=== PATIENT | female | born 1945 | race Caucasian/White ===

== ENCOUNTER → 2016-11-29 | Outpatient (CLI) | payer MEDICARE, BC ==
[2015-07-30 09:40] VITALS: BP 134/61
[~2016-11-29] MED LIST: ASPI-482 PO; ATORVASTATIN CA80 MG PO; BYSTOLIC5 MG PO; CLOP75TA PO; CRESTOR40 MG PO; LOSA50TA6 PO; MONT10TA9 PO; PROAIR HFA8.5 GM IH; RANI150C PO
--- NOTE | 2016-11-29 11:09 | KCIC ---
PROCEDURE Bilateral digital screening mammogram. HISTORY 71-year-old female presents for screening mammography. TECHNIQUE Full field digital craniocaudal and mediolateral oblique views of both breasts are obtained. Computer-aided detection is applied. COMPARISON 07/14/2015 and 07/01/2014 FINDINGS Breast parenchymal composition: Level B - Scattered fibroglandular densities. There is no new suspicious mass, calcification or architectural distortion within either breast. There is focal asymmetry within the slightly superior left breast on the mediolateral oblique view, without a correlate on the craniocaudal view and stable compared to the study dated 07/01/2014. There are few benign calcifications. IMPRESSION BI-RADS Category 2: Benign findings. Annual mammography is recommended. Mammography is not 100% sensitive in detecting breast cancer. Therefore, a self breast exam and a clinical breast exam are very important. A negative mammogram does not negate a clinically suspicious finding and should not result in a delay in biopsying a clinically suspicious abnormality. This patient's information has been entered into a reminder system for the patient to be notified with the results of this examination and a target date for her next mammograms. Electronically signed by: Marianela Clarke (Nov 29, 2016 11:07:34)
== END | disposition home or self-care (01) ==
LOC: KCIC MAMMO 10:14
PROVIDERS: ATTEND Family Medicine
DX: Z12.31 Encounter for screening mammogram for malignant neoplasm of breast (principal)
CPT/HCPCS: G0202; 77067

== ENCOUNTER → 2018-10-30 | Outpatient (CLI) | payer MEDICARE ==
[2015-07-30 09:40] VITALS: BP 134/61
[~2018-10-30] MED LIST changes: +ALBU2.5V8 IH; +LOSA-73 PO; -LOSA50TA6 PO; -PROAIR HFA8.5 GM IH
--- NOTE | 2018-10-30 15:47 | KCIC ---
Bilateral digital screening mammograms with 3-D tomosynthesis: Reason for examination: Routine screening. Comparison is made to previous studies dated 11/29/2016 and 07/14/2015. Bilateral mammograms in CC and oblique projections were obtained with 2-D imaging and 3-D tomosynthesis imaging on a Siemens Inspiration unit and reviewed on the workstation. Interpretation was made with the benefit of CAD. The skin and nipples show no abnormalities. No abnormal axillary lymph nodes are seen. The breast parenchyma shows scattered fatty and fibroglandular density. (Breast density: Category B.) There are no dominant masses, suspicious calcifications or architectural distortion. Impression: No evidence of malignancy. Recommend routine screening. BI-RAD Category 1: Negative. "Our facility is accredited by the [employer] Mammography [employer]." This patient's information has been entered into a reminder system for the patient to be notified with the results of her examination and a target date for the next mammogram. Electronically signed by: Allyn Pace MD (10/30/2018 3:43 PM) [id number]
== END | disposition home or self-care (01) ==
LOC: KCIC MAMMO 10:49
PROVIDERS: ATTEND Family Medicine
DX: Z12.31 Encounter for screening mammogram for malignant neoplasm of breast (principal)
CPT/HCPCS: 77063; 77067

== ENCOUNTER → 2019-12-14 | Outpatient (CLI) | payer MEDICARE ==
[2015-07-30 09:40] VITALS: BP 134/61
[~2019-12-14] MED LIST changes: +MONT10TA49 PO; -MONT10TA9 PO
--- NOTE | 2019-12-14 12:57 | KCIC ---
Bilateral digital screening mammograms with 3-D tomosynthesis: Reason for examination: Routine screening. Comparison is made to previous studies dated back to 07/14/2015. Bilateral mammograms in CC and oblique projections were obtained with 2-D imaging and 3-D tomosynthesis imaging on a [employer] Inspiration unit and reviewed on the workstation. Interpretation was made with the benefit of CAD. The skin and nipples show no abnormalities. No abnormal axillary lymph nodes are seen. The breast parenchyma is predominantly fatty. (Breast density: Category A.) There are no dominant masses, suspicious calcifications or architectural distortion. Impression: No evidence of malignancy. Recommend routine screening. BI-RAD Category 1: Negative. "Our facility is accredited by the [employer] Mammography [employer]." This patient's information has been entered into a reminder system for the patient to be notified with the results of her examination and a target date for the next mammogram. Electronically signed by: Allyn Pace MD (12/14/2019 12:54 PM) [email or web address]
--- NOTE | 2019-12-14 17:25 | KCIC ---
Bone mineral density exam History: Osteoporosis screening, postmenopausal Comparison: 07/01/2014 Findings: Bone mineral density examination utilizing DEXA was performed. Left hip bone mineral density of 0.807 g/cm2 corresponds with a T score -1.1, Z score 0.6. There has been -4.9% decrease. The bone mineral density of the lumbar spine was 0.991 g/cm2 which corresponds with a T-score of -0.5, Z score 1.8. There has been 0.4% increase. By World [employer] on Osteoporosis criteria, a T score of 0 to-1 SD is considered to be within normal limits. A T score of -1 to -2.5 SD is considered osteopenia. A T score less than -2.5 SD is considered osteoporosis Impression: 1. There is normal bone density of the lumbar spine although could be artificially elevated due to the presence of degenerative change. There is osteopenia of the left hip. Electronically signed by: Harry Caldera MD (12/14/2019 5:22 PM) [id number]
== END | disposition home or self-care (01) ==
LOC: KCIC DEXA 08:50
PROVIDERS: ATTEND Nurse Practitioner Family
DX: Z12.31 Encounter for screening mammogram for malignant neoplasm of breast (principal); Z13.820 Encounter for screening for osteoporosis; Z78.0 Asymptomatic menopausal state
CPT/HCPCS: 77063; 77067; 77080

== ENCOUNTER → 2020-06-11 | Outpatient (CLI) | payer MEDICARE ==
[2015-07-30 09:40] VITALS: BP 134/61
--- NOTE | 2020-06-11 17:14 | RAD ---
Clinical Indications: Carotid stenosis. Exam : Carotid Duplex with Grayscale Ultrasound and Spectral and Color Doppler Analysis: PQRS Compliance Statement - Stenosis calculations for CT, MR and conventional angiography are based upon measurement of the distal ICA diameter in accordance with the NASCET methodology. Stenosis calculations for carotid ultrasound studies are derived from validated velocity criteria which are known to correlate with the NASCET methodology. Comparison study: Carotid duplex ultrasound of 07/14/2015. Findings: The common, internal and external carotid arteries were examined by grayscale, color and spectral Doppler ultrasound. Apart from the chronic, known occlusion of the right internal carotid artery, there is increased peak systolic velocity in the right ECA into 190 cm/s (compared with 97 cm/s previously), representing a moderate stenosis. Mild plaque at the left carotid bulb calcification in the proximal left ICA is noted. No other evidence of significant stenosis in the visualized vessels. Flow in both vertebral arteries was antegrade and normal. The following are the velocities and ratios in the carotid arteries on both sides: RIGHT ICA PV: 0cm/sec RIGHT CCA PV: 98cm/sec RIGHT ICA ED: 0cm/sec RIGHT IC/CCPV: 0 RIGHT VERTEBRAL: antegrade flow RIGHT % STENOSIS: 50% LEFT ICA PV: 97cm/sec LEFT CCA PV: 148cm/sec LEFT ICA ED: 22cm/sec LEFT IC/CCPV: 0.81 LEFT VERTEBRAL: antegrade flow LEFT % STENOSIS: 0 percent <50% ICA Stenosis: PSV < 125cm/s (EDV < 40cm/s; SVR < 2.0) 50-69% ICA Stenosis: PSV < 125-229cm/s (EDV 40-99cm/s; SVR 2.0-3.9) >70% ICA Stenosis: PSV > 230cm/s (EDV >100cm/s; SVR >4.0) Impression: 1. 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 Widely patent left ICA, and antegrade flow in the bilateral vertebral arteries. 3. Interval increase in velocity in the right external carotid artery, compatible with a 50-69% percent stenosis . Electronically signed by: Hira Ohara MD (06/11/2020 5:11 PM) [id number]
== END | disposition home or self-care (01) ==
LOC: US 16:06
PROVIDERS: ATTEND Family Medicine
DX: I65.23 Occlusion and stenosis of bilateral carotid arteries (principal)
CPT/HCPCS: 93880

== ENCOUNTER → 2020-12-15 | Outpatient (CLI) | payer MEDICARE ==
[2015-07-30 09:40] VITALS: BP 134/61
--- NOTE | 2020-12-15 11:06 | KCIC ---
Bilateral digital screening mammograms with 3-D tomosynthesis: Reason for examination: Routine screening. Comparison is made to previous studies dated back to 07/14/2015. Bilateral mammograms in CC and oblique projections were obtained with 2-D imaging and 3-D tomosynthes is imaging on a Siemens Inspiration unit and reviewed on the workstation. Interpretation was made wit h the benefit of CAD. The skin and nipples show no abnormalities. No abnormal axillary lymph nodes are seen. The breast par enchyma shows scattered fatty and fibroglandular density. (Breast density: Category B.) There are no dominant masses, suspicious calcifications or architectural distortion. Impression: No evidence of malignancy. Recommend routine screening. BI-RAD Category 1: Negative. "Our facility is accredited by the [employer] Mammography [employer]." This patient's information has been entered into a reminder system for the patient to be notified wit h the results of her examination and a target date for the next mammogram. Electronically signed by: Allyn Pace MD (12/15/2020 11:04 AM) [email or web address]
== END ==
LOC: KCIC MAMMO 09:44
PROVIDERS: ATTEND Family Medicine
DX: Z12.31 Encounter for screening mammogram for malignant neoplasm of breast (principal)
CPT/HCPCS: 77063; 77067

== ENCOUNTER → 2021-12-22 | Outpatient (CLI) | payer MEDICARE ==
[2015-07-30 09:40] VITALS: BP 134/61
--- NOTE | 2021-12-22 13:55 | KCIC ---
Bilateral digital screening mammograms with 3-D tomosynthesis: Reason for examination: Routine screening. Comparison is made to previous studies dated back to 07/14/2015. Bilateral mammograms in CC and oblique projections were obtained with 2-D imaging and 3-D tomosynthes is imaging on a [employer] Inspiration unit and reviewed on the workstation. Interpretation was made wit h the benefit of CAD. The skin and nipples show no abnormalities. No abnormal axillary lymph nodes are seen. The breast par enchyma shows scattered fatty and fibroglandular density. (Breast density: Category B.) There are no dominant masses, suspicious calcifications or architectural distortion. A few benign calcifications a re again seen. Impression: No evidence of malignancy. Recommend routine screening. BI-RAD Category 2: Benign. "Our facility is accredited by the [employer] Mammography [employer]." This patient's information has been entered into a reminder system for the patient to be notified wit h the results of her examination and a target date for the next mammogram. Electronically signed by: Allyn Pace MD (12/22/2021 1:52 PM) [email or web address]
== END ==
LOC: KCIC MAMMO 12:26
PROVIDERS: ATTEND Family Medicine
DX: Z12.31 Encounter for screening mammogram for malignant neoplasm of breast (principal)
CPT/HCPCS: 77063; 77067